=== PATIENT | female | born 1985 | race American Indian/Alaskan Native ===

== ENCOUNTER 2017-10-26 08:50 | Emergency (ER) | payer MEDICAID, OTHER ==
--- NOTE | 2017-10-26 12:41 | Emergency Department Report ---
HPI - General Chief Complaint: Upper Respiratory Infection Time Seen by Provider: 10/26/17 12:40 - HPI HPI: Patient reports that she has cough, sneezing, nasal congestion and chest pain only with coughing 1 week. She reports that she is having intermittent chills with yellowish brownish sputum. Denies any fever. She says symptoms worse this morning and she has not been able to go to work and she was also exposed from her coworker with similar symptoms. She says she is taking over-the- counter cough and cold and started given her symptoms. Pain to the chest wall 5 out of 10 with coughing. Pain is achy and sore. Denies any shortness of breath or chest pain without coughing. ED Past Medical Hx - Past Medical History Previous Medical History?: No - Surgical History Past Surgical History?: No - Family History Family history: no significant - Social History Smoking Status: Never Smoker Substance Use Type: None - Medications Home Medications: Home Medications Medication Instructions Recorded Confirmed Last Taken Type Acetaminophen/Codeine [Tylenol #3] 1 tab PO Q6H PRN #20 tab 01/17/15 Unknown Rx Cetirizine HCl [ZyrTEC] 10 mg PO QAM 14 Days #14 capsule 10/26/17 Unknown Rx Ibuprofen [Motrin 600 MG tab] 600 mg PO Q8H PRN #12 tablet 10/26/17 Unknown Rx Oseltamivir [Tamiflu] 75 mg PO Q12H 5 Days #10 capsule 10/26/17 Unknown Rx guaiFENesin/CODEINE [Robitussin AC] 5 ml PO Q8H PRN #75 ml 10/26/17 Unknown Rx ED Review of Systems ROS: Stated complaint: CHEST, COUGH,SNEEZING Other details as noted in HPI Comment: All other systems reviewed and negative Constitutional: chills Eyes: denies: eye pain, eye discharge ENT: congestion. denies: ear pain, throat pain Respiratory: cough. denies: orthopnea, shortness of breath, SOB with exertion, SOB at rest, stridor, wheezing Cardiovascular: chest pain (chest wall pain on the cough and). denies: palpitations, dyspnea on exertion, orthopnea, edema, syncope, paroxysmal nocturnal dyspnea Gastrointestinal: denies: abdominal pain, nausea, vomiting, diarrhea, constipation, hematemesis, melena, hematochezia Genitourinary: denies: urgency, dysuria, frequency, hematuria, discharge Musculoskeletal: myalgia. denies: back pain, arthralgia Skin: denies: rash Neurological: denies: headache Physical Exam - Physical Exam Vital Signs: Vital Signs 10/26/17 09:24 Temperature 98.2 F Pulse Rate 72 Respiratory 18 Rate Blood Pressure 139/90 O2 Sat by Pulse 96 Oximetry Vital Signs 10/26/17 10/26/17 09:24 13:02 Temperature 98.2 F Pulse Rate 72 Respiratory 18 18 Rate Blood Pressure 139/90 O2 Sat by Pulse 96 Oximetry Vital Signs 10/26/17 10/26/17 10/26/17 09:24 13:02 15:48 Temperature 98.2 F 98.6 F Pulse Rate 72 62 Respiratory 18 18 15 Rate Blood Pressure 139/90 121/86 O2 Sat by Pulse 96 99 Oximetry General: This is a 32-year-old female well-nourished well-developed in no acute distress Physical Exam: Head: Normocephalic atraumatic Ears:BIateral TM congested without erythema and loss of bony landmarks. Barrie EAC with normal exam. No mastoid bone tenderness. Mouth: Moist, no pharyngeal erythema or exudate . No tonsillar erythema or exudate. UVULA midline and oral airways patent. No peritonsillar abscess Neck: Nontender to palpate, supple, normal range of motion. No adenopathy. No c- spine tenderness. Nose: Bilateral nasal mucosa congested with clear drainage. Maxillary and frontal sinuses non-tender to palpate. Eyes: Sclerae and conjunctiva without injection. Bilateral pupils equal and reactive to light. Bilateral lids are normal. Normal accommodation.BEOMI Lungs: Scattered wheezing to upper lung moe .no use of accessory muscles. No rhonchi or rales. Normal work of breathing and no chest wall tenderness CV: S1, S2. Regular rate and rhythm negative murmur. Capillary refill is less than 3 seconds Skin: Clean dry and intact, no rashes or lesions Psych: Normal mood and behavior abdomen: Soft, nontender to palpate in all quadrants, no guarding or rebound tenderness. Positive bowel sounds in all quadrants and no CVA tenderness ED Course Vital Signs 10/26/17 09:24 Temperature 98.2 F Pulse Rate 72 Respiratory 18 Rate Blood Pressure 139/90 O2 Sat by Pulse 96 Oximetry Vital Signs 10/26/17 10/26/17 09:24 13:02 Temperature 98.2 F Pulse Rate 72 Respiratory 18 18 Rate Blood Pressure 139/90 O2 Sat by Pulse 96 Oximetry Vital Signs 10/26/17 10/26/17 10/26/17 09:24 13:02 15:48 Temperature 98.2 F 98.6 F Pulse Rate 72 62 Respiratory 18 18 15 Rate Blood Pressure 139/90 121/86 O2 Sat by Pulse 96 99 Oximetry - Reevaluation(s) Reevaluation #1: 10/26/17 15:38 Patient received Motrin 800 mg by mouth for bodyaches. He is able to tolerate oral fluids in the emergency room without any nausea or vomiting 10/26/17 15:38 ED Medical Decision Making - Lab Data Influenza A and B- - Radiology Data Radiology results: report reviewed Chest x-ray reveals no acute cardiopulmonary processes - Medical Decision Making ED course: Patient here complaining of cough cold symptoms that's been ongoing for 1 week. Chest x-ray is normal and influenza A and B is negative. I discussed patient that she does not have influenza A or B and that her chest x- ray was negative for any acute findings. I discussed with her that she has viral syndrome with cough and congestion and will be placed on medication. Discussed patient she needs to rest for 2 days, increase her fluid intake and take vitamin C to include orange juice. She was understanding of her discharge diagnosis, treatment plan and follow-up. Tolerated oral liquids in emergency room without any nausea or vomiting. He received ibuprofen 800 mg by mouth. Patient discharged home a prescription for, flu, Motrin, Zyrtec and guaifenesin with codeine. Critical care attestation.: If time is entered above; I have spent that time in minutes in the direct care of this critically ill patient, excluding procedure time. ED Disposition Clinical Impression: Upper respiratory infection with cough and congestion, Acute viral syndrome, Body aches Disposition: DC-01 TO HOME OR SELFCARE Is pt being admited?: No Does the pt Need Aspirin: No Condition: Stable Instructions: Upper Respiratory Infection (ED), Viral Syndrome (ED), Acute Cough (ED) Additional Instructions: Please increase her fluid intake to 2-3 L of liquids per day to include orange juice, water. Please do not drive or operate heavy machinery while taking cough medicine as this medication causes drowsiness Rest and take Tamiflu Follow-up the primary care physician in 2-3 days and if he do not have one you can follow-up at [facility] Prescriptions: Cetirizine HCl [ZyrTEC] 10 mg PO QAM 14 Days #14 capsule guaiFENesin/CODEINE [Robitussin AC] 5 ml PO Q8H PRN #75 ml PRN Reason: Cough Ibuprofen [Motrin 600 MG tab] 600 mg PO Q8H PRN #12 tablet PRN Reason: Pain Oseltamivir [Tamiflu] 75 mg PO Q12H 5 Days #10 capsule Referrals: PRIMARY CARE, [Primary Care Provider] - 2-3 Days [facility] [Outside] - 2-3 Days Forms: Work/School Release Form(ED)
[2017-10-26] MEDS ORDERED: MOTRIN PO ONE (12:47)
--- NOTE | 2017-10-26 14:00 | XRay Report ---
AP CHEST: HISTORY: Cough, fever AP view of the chest demonstrates a normal mediastinal and cardiac contour with clear lungs and normal bony and soft tissue structures. IMPRESSION: Unremarkable AP chest.
[2017-10-26 15:54] VITALS: BP 121/86
== END 2017-10-26 15:55 | disposition home or self-care (01) ==
LOC: ED 08:50
DX: J06.9 Acute upper respiratory infection, unspecified (principal); B34.9 Viral infection, unspecified; Z88.0 Allergy status to penicillin; Z88.2 Allergy status to sulfonamides
CPT/HCPCS: 71046; 87400; 93005; 93010